=== PATIENT | female | born 1970 | race Two or more races ===

== ENCOUNTER 2017-05-13 06:08 | Emergency (ER) | payer OTHER ==
[~2017-05-13] VITALS: Ht 152.4 cm; Wt 108.9 kg
[2017-05-13] MEDS ORDERED: LEVSOD150 PO (06:27)
[2017-05-13 07:36] LABS: BASOPHILS ABSOLUTE AUTO 0.05 K/mm3 (0.00-0.23); BASOPHILS PERCENT AUTO 1 % (0-2); EOSINOPHILS ABSOLUTE AUTO 0.24 K/mm3 (0.00-0.68); EOSINOPHILS PERCENT AUTO 3 % (0-6); Hematocrit 37.6 % (33.0-51.0); Hemoglobin 11.4 g/dL (11.5-16.0); IMMATURE GRAN ABSOLUTE AUTO 0.02 K/mm3 (0.00-0.10); IMMATURE GRAN PERCENT AUTO 0 % (0-1); LYMPHOCYTES ABSOLUTE AUTO 1.94 K/mm3 (0.84-5.20); LYMPHOCYTES PERCENT AUTO 23 % (21-46); MONOCYTES ABSOLUTE AUTO 0.72 K/mm3 (0.16-1.47); MONOCYTES PERCENT AUTO 8 % (4-13); Mean Corpuscular HGB 22.2 pg (26.0-34.0); Mean Corpuscular HGB Conc 30.3 g/dL (31.5-36.5); Mean Corpuscular Volume 73 fL (80-100); Mean Platelet Volume 9.3 fL (9.1-12.4); NEUTROPHILS ABSOLUTE AUTO 5.62 K/mm3 (1.96-9.15); NEUTROPHILS PERCENT AUTO 65 % (41-73); Platelet Count 398 K/mm3 (150-400); RDW Coefficient Variation 16.1 % (11.7-14.2); RDW Standard Deviation 43.3 fL (35.1-46.3); Red Blood Cell Count 5.14 M/mm3 (3.80-5.20); White Blood Cell Count 8.59 K/mm3 (4.00-11.30)
[2017-05-13 08:00] LABS: Alanine Aminotransfer (ALT/SGP 25 U/L (12-78); Albumin, Blood 3.7 g/dL (3.4-5.0); Albumin/Globulin Ratio 0.9 (0.8-1.8); Alk Phos 55 U/L (50-136); Anion Gap 8 mmol/L (6-16); Aspartate Aminotrans (AST/SGOT 16 U/L (12-37); Bilirubin, Total 0.3 mg/dL (0.1-1.0); Blood Urea Nitrogen 13 mg/dL (8-24); Bun/Creatinine Ratio 22.7 (12.0-20.0); CO2, Blood 26 mmol/L (21-32); Calcium, Blood 8.4 mg/dL (8.5-10.1); Chloride, Blood 106 mmol/L (98-108); Creatinine, Blood 0.57 mg/dL (0.40-1.00); Globulin, Blood 4.2 g/dL (2.2-4.0); Glomerular Filtration Rate >60 (60-); Glucose, Blood 121 mg/dL (70-99); Potassium, Blood 3.5 mmol/L (3.5-5.5); Sodium, Blood 140 mmol/L (136-145); Total Protein, Blood 7.9 g/dL (6.4-8.2)
[2017-05-13] MEDS ORDERED: PROM25 PO (10:33)
== END 2017-05-13 10:59 | disposition home or self-care (01) ==
LOC: ER 06:08
PROVIDERS: Emergency Medicine
DX: K59.00 Constipation, unspecified (principal); Z90.49 Acquired absence of other specified parts of digestive tract
CPT/HCPCS: 36415; 74022; 74176; 80053; 81000; 83690; 84703; 85025; 96361; 96374; 96375; 99284; J2405; J3010; J3490; J7030

== ENCOUNTER → 2018-08-21 | Outpatient (CLI) | payer OTHER ==
[~2018-08-21] MED LIST: LEVSOD150 PO; PROM25 PO
[2018-08-23 15:06] LABS: HPV 16 Negative (Negative); HPV 18 Negative (Negative); HPV OTHER HR TYPES Negative (Negative)
== END | disposition home or self-care (01) ==
LOC: LAB SHORT 18:41 → LAB 18:41
PROVIDERS: Nurse Practitioner Women's Health
DX: Z12.4 Encounter for screening for malignant neoplasm of cervix (principal)
CPT/HCPCS: 87624; G0123

== ENCOUNTER 2020-02-29 20:25 | Emergency (ER) | payer OTHER ==
[~2020-02-29] VITALS: Ht 154.9 cm; Wt 106.6 kg
[2020-02-29] MEDS ORDERED: MEDR10 PO (20:40)
[2020-02-29 20:49] LABS: Source, Urine Clean Catch
[2020-02-29 20:51] LABS: Bilirubin, Urine Neg (Neg); Blood, Urine 5+ (Neg); Glucose Qualitative, Urine Neg (Neg); Ketones, Urine Neg (Neg); Leukocyte Esterase, Urine 3+ (Neg); Nitrite, Urine Neg (Neg); Protein, Urine 2+ (Neg); Specific Gravity, Urine 1.015 (1.003-1.022); Urobilinogen, Urine NORM (Normal)
[2020-02-29 20:55] LABS: Appearance, Urine Cloudy (Clear); Color, Urine Red (P-Yellow)
[2020-02-29 21:01] LABS: Red Blood Cells, Urine TNTC /hpf (0-2)
[2020-02-29 21:02] LABS: BASOPHILS ABSOLUTE AUTO 0.09 K/mm3 (0.00-0.23); BASOPHILS PERCENT AUTO 1 % (0-2); EOSINOPHILS ABSOLUTE AUTO 0.13 K/mm3 (0.00-0.68); EOSINOPHILS PERCENT AUTO 1 % (0-6); Hematocrit 30.9 % (33.0-51.0); Hemoglobin 10.1 g/dL (11.5-16.0); IMMATURE GRAN ABSOLUTE AUTO 0.04 K/mm3 (0.00-0.10); IMMATURE GRAN PERCENT AUTO 0 % (0-1); LYMPHOCYTES ABSOLUTE AUTO 3.46 K/mm3 (0.84-5.20); LYMPHOCYTES PERCENT AUTO 24 % (21-46); MONOCYTES ABSOLUTE AUTO 0.95 K/mm3 (0.16-1.47); MONOCYTES PERCENT AUTO 7 % (4-13); Mean Corpuscular HGB 29.5 pg (26.0-34.0); Mean Corpuscular HGB Conc 32.7 g/dL (31.5-36.5); Mean Corpuscular Volume 90 fL (80-100); Mean Platelet Volume 10.3 fL (9.1-12.4); NEUTROPHILS ABSOLUTE AUTO 9.55 K/mm3 (1.96-9.15); NEUTROPHILS PERCENT AUTO 67 % (41-73); Platelet Count 312 K/mm3 (150-400); RDW Coefficient Variation 13.7 % (11.7-14.2); RDW Standard Deviation 44.6 fL (35.1-46.3); Red Blood Cell Count 3.42 M/mm3 (3.80-5.20); White Blood Cell Count 14.22 K/mm3 (4.00-11.30)
[2020-02-29 21:03] LABS: Bacteria Mod /hpf; Squamous Epithelial Cells Rare /hpf (Few)
[2020-02-29 21:20] LABS: Alanine Aminotransfer (ALT/SGP 30 U/L (12-78); Albumin, Blood 3.6 g/dL (3.4-5.0); Alk Phos 46 U/L (50-136); Anion Gap 6 mmol/L (6-16); Aspartate Aminotrans (AST/SGOT 21 U/L (12-37); Bilirubin, Total 0.1 mg/dL (0.1-1.0); Blood Urea Nitrogen 18 mg/dL (8-24); Bun/Creatinine Ratio 29.9 (12.0-20.0); CO2, Blood 26 mmol/L (21-32); Calcium, Blood 8.9 mg/dL (8.5-10.1); Chloride, Blood 111 mmol/L (98-108); Globulin, Blood 3.5 g/dL (2.2-4.0); Glomerular Filtration Rate >60 (60-); Glucose, Blood 123 mg/dL (70-99); Potassium, Blood 3.9 mmol/L (3.5-5.5); Sodium, Blood 143 mmol/L (136-145); Total Protein, Blood 7.1 g/dL (6.4-8.2)
== END 2020-02-29 22:45 | disposition home or self-care (01) ==
LOC: ER 20:25
PROVIDERS: Emergency Medicine
DX: N93.9 Abnormal uterine and vaginal bleeding, unspecified (principal); E03.9 Hypothyroidism, unspecified; Z79.3 Long term (current) use of hormonal contraceptives; Z79.899 Other long term (current) drug therapy
CPT/HCPCS: 36415; 76830; 76856; 80053; 81001; 85025; 86850; 86900; 86901; 87077; 87086; 87186; 99284-25

== ENCOUNTER 2020-07-04 01:04 | Inpatient (IN) | payer OTHER ==
[~2020-07-04] VITALS: Ht 154.9 cm; Wt 105.5 kg
[~2020-07-04 01:04] MED LIST changes: +MEDR10 PO
[2020-07-04 02:08] LABS: BASOPHILS ABSOLUTE AUTO 0.02 K/mm3 (0.00-0.23); BASOPHILS PERCENT AUTO 0 % (0-2); EOSINOPHILS PERCENT AUTO 0 % (0-6); Hematocrit 44.5 % (33.0-51.0); Hemoglobin 14.3 g/dL (11.5-16.0); IMMATURE GRAN ABSOLUTE AUTO 0.13 K/mm3 (0.00-0.10); IMMATURE GRAN PERCENT AUTO 1 % (0-1); LYMPHOCYTES ABSOLUTE AUTO 1.25 K/mm3 (0.84-5.20); LYMPHOCYTES PERCENT AUTO 10 % (21-46); MONOCYTES PERCENT AUTO 6 % (4-13); Mean Corpuscular HGB Conc 32.1 g/dL (31.5-36.5); Mean Corpuscular Volume 75 fL (80-100); Mean Platelet Volume 10.1 fL (9.1-12.4); NEUTROPHILS ABSOLUTE AUTO 10.11 K/mm3 (1.96-9.15); NEUTROPHILS PERCENT AUTO 83 % (41-73); Platelet Count 333 K/mm3 (150-400); RDW Coefficient Variation 19.7 % (11.7-14.2); RDW Standard Deviation 50.7 fL (35.1-46.3); Red Blood Cell Count 5.97 M/mm3 (3.80-5.20); White Blood Cell Count 12.21 K/mm3 (4.00-11.30)
[2020-07-04 02:27] LABS: D-Dimer, Quantitative 0.3 mg/L FEU (0.00-0.52); International Normalized Ratio 0.95; Prothrombin Time Results 10.2 Sec (9.7-11.5)
[2020-07-04 02:29] LABS: Alanine Aminotransfer (ALT/SGP 28 U/L (12-78); Albumin, Blood 2.9 g/dL (3.4-5.0); Albumin/Globulin Ratio 0.6 (0.8-1.8); Alk Phos 62 U/L (50-136); Anion Gap 8 mmol/L (6-16); Aspartate Aminotrans (AST/SGOT 18 U/L (12-37); Bilirubin, Total 0.3 mg/dL (0.1-1.0); Blood Urea Nitrogen 13 mg/dL (8-24); Bun/Creatinine Ratio 28.4 (12.0-20.0); CO2, Blood 25 mmol/L (21-32); Calcium, Blood 8.6 mg/dL (8.5-10.1); Chloride, Blood 105 mmol/L (98-108); Creatinine, Blood 0.46 mg/dL (0.40-1.00); Globulin, Blood 4.7 g/dL (2.2-4.0); Glomerular Filtration Rate >60 (60-); Glucose, Blood 236 mg/dL (70-99); Potassium, Blood 3.5 mmol/L (3.5-5.5); Sodium, Blood 138 mmol/L (136-145); Total Protein, Blood 7.6 g/dL (6.4-8.2); Troponin I <0.015 ng/mL (0.000-0.040)
[2020-07-04 03:59] LABS: Influenza A, PCR NEGATIVE (NEGATIVE); Influenza B, PCR NEGATIVE (NEGATIVE); Resp Syncytial Virus, PCR NEGATIVE (NEGATIVE)
[2020-07-04 04:09] LABS: SARS-Cov-2 (COVID-19) PCR, MMC POSITIVE (NEGATIVE)
--- NOTE | 2020-07-04 07:11 | NUR ---
SHIFT SUMMARY PT ARRIVED TO THE UNIT AROUND 0510 ON 4 LPM VIA NC WITH O2 SATS >94%. PT ABLE TO STAND AND TRANSFER TO BED WITH MILD DYSPNEA. PT WAS ALERT, ORIENTED AND COOPERATIVE WITH CARE. BP WAS HYPERTENSIVE. HR 90'S. ADMISSION PROCESS COMPLETE. PT UP IN BED AND STATED SOB WAS GETTING BETTER.
[2020-07-04 14:03] LABS: BASOPHILS ABSOLUTE AUTO 0.01 K/mm3 (0.00-0.23); BASOPHILS PERCENT AUTO 0 % (0-2); EOSINOPHILS PERCENT AUTO 0 % (0-6); Hemoglobin 13.9 g/dL (11.5-16.0); IMMATURE GRAN ABSOLUTE AUTO 0.14 K/mm3 (0.00-0.10); IMMATURE GRAN PERCENT AUTO 1 % (0-1); LYMPHOCYTES ABSOLUTE AUTO 0.72 K/mm3 (0.84-5.20); LYMPHOCYTES PERCENT AUTO 7 % (21-46); MONOCYTES PERCENT AUTO 5 % (4-13); Mean Corpuscular HGB 23.7 pg (26.0-34.0); Mean Corpuscular HGB Conc 31.6 g/dL (31.5-36.5); Mean Corpuscular Volume 75 fL (80-100); Mean Platelet Volume 9.7 fL (9.1-12.4); NEUTROPHILS ABSOLUTE AUTO 9.03 K/mm3 (1.96-9.15); NEUTROPHILS PERCENT AUTO 87 % (41-73); Platelet Count 317 K/mm3 (150-400); RDW Standard Deviation 51.8 fL (35.1-46.3); Red Blood Cell Count 5.87 M/mm3 (3.80-5.20)
[2020-07-04 14:27] LABS: Alanine Aminotransfer (ALT/SGP 29 U/L (12-78); Albumin, Blood 2.8 g/dL (3.4-5.0); Albumin/Globulin Ratio 0.6 (0.8-1.8); Alk Phos 64 U/L (50-136); Anion Gap 8 mmol/L (6-16); Aspartate Aminotrans (AST/SGOT 18 U/L (12-37); Bilirubin, Total 0.2 mg/dL (0.1-1.0); Blood Urea Nitrogen 12 mg/dL (8-24); Bun/Creatinine Ratio 27.3 (12.0-20.0); CO2, Blood 24 mmol/L (21-32); Calcium, Blood 8.6 mg/dL (8.5-10.1); Chloride, Blood 106 mmol/L (98-108); Creatinine, Blood 0.44 mg/dL (0.40-1.00); Globulin, Blood 4.5 g/dL (2.2-4.0); Glomerular Filtration Rate >60 (60-); Glucose, Blood 308 mg/dL (70-99); Sodium, Blood 138 mmol/L (136-145); Total Protein, Blood 7.3 g/dL (6.4-8.2)
--- NOTE | 2020-07-04 17:00 | NUR ---
SHIFT SUMMARY NO ACUTE EVENTS THIS SHIFT. PATIENT ALERT AND ORIENTED, ABLE TO AMBULATE IN ROOM WITH STANDBY ASSIST FOR O2 TUBING MANAGEMENT. PATIENT O2 SATS MAINTAINED IN 90S THIS SHIFT WITH 3 L VIA NASAL CANNULA. PATIENT HYPERTENSIVE AT TIMES, CLONIDINE AND HYDRALAZINE GIVEN PRN PER EMAR. PATIENT DENIED PAIN THIS SHIFT, COMPLAINED OF HEADACHE BUT DECLINED TYLENOL AT THIS TIME.
[2020-07-05 04:04] LABS: BASOPHILS ABSOLUTE AUTO 0.02 K/mm3 (0.00-0.23); BASOPHILS PERCENT AUTO 0 % (0-2); EOSINOPHILS ABSOLUTE AUTO 0.01 K/mm3 (0.00-0.68); EOSINOPHILS PERCENT AUTO 0 % (0-6); Hematocrit 44.4 % (33.0-51.0); IMMATURE GRAN PERCENT AUTO 1 % (0-1); LYMPHOCYTES ABSOLUTE AUTO 1.65 K/mm3 (0.84-5.20); LYMPHOCYTES PERCENT AUTO 19 % (21-46); MONOCYTES ABSOLUTE AUTO 0.58 K/mm3 (0.16-1.47); MONOCYTES PERCENT AUTO 7 % (4-13); Mean Corpuscular HGB 23.6 pg (26.0-34.0); Mean Corpuscular HGB Conc 31.5 g/dL (31.5-36.5); Mean Corpuscular Volume 75 fL (80-100); Mean Platelet Volume 9.7 fL (9.1-12.4); NEUTROPHILS ABSOLUTE AUTO 6.51 K/mm3 (1.96-9.15); NEUTROPHILS PERCENT AUTO 74 % (41-73); Platelet Count 311 K/mm3 (150-400); RDW Coefficient Variation 20.1 % (11.7-14.2); Red Blood Cell Count 5.94 M/mm3 (3.80-5.20); White Blood Cell Count 8.87 K/mm3 (4.00-11.30)
[2020-07-05 05:33] LABS: Alanine Aminotransfer (ALT/SGP 27 U/L (12-78); Albumin, Blood 2.7 g/dL (3.4-5.0); Albumin/Globulin Ratio 0.6 (0.8-1.8); Alk Phos 56 U/L (50-136); Anion Gap 8 mmol/L (6-16); Aspartate Aminotrans (AST/SGOT 23 U/L (12-37); Bilirubin, Total 0.3 mg/dL (0.1-1.0); Blood Urea Nitrogen 14 mg/dL (8-24); Bun/Creatinine Ratio 31.5 (12.0-20.0); CO2, Blood 26 mmol/L (21-32); Calcium, Blood 8.5 mg/dL (8.5-10.1); Chloride, Blood 106 mmol/L (98-108); Creatinine, Blood 0.45 mg/dL (0.40-1.00); Globulin, Blood 4.3 g/dL (2.2-4.0); Glomerular Filtration Rate >60 (60-); Glucose, Blood 162 mg/dL (70-99); Magnesium, Blood 2.3 mg/dL (1.6-2.4); Phosphorus, Blood 2.9 mg/dL (2.5-4.9); Potassium, Blood 3.6 mmol/L (3.5-5.5); Sodium, Blood 140 mmol/L (136-145); Troponin I <0.015 ng/mL (0.000-0.040)
--- NOTE | 2020-07-05 05:44 | NUR ---
SHIFT SUMMARY PT A&OX4. PT HAD ONE EPISODE OF ANXIETY THIS SHIFT, CALL PLACED TO MD HERNANDEZ. MD HERNANDEZ W/ ORDERS FOR PO ATIVAN, WHICH PROVIDED RELIEF. SP02>90% ON 3-5L NC. PT DOES GET SOB W/ EXERTION. PT HAS OCCASIONAL COUGH PRODUCING CLEAR STREAKED SPUTUM. TELEMETRY READ SR, HR 80'S. PT HAD ELEVATED BP THIS SHIFT, MEDICATED W/ HYDRALAZINE PER EMAR X1. PT UP TO [facility] [place]/ SBA TO VOID AND HAVE ONE EPISODE OF LIQUID DIARRHEA. PT SLEPT OFF AND ON T/O NIGHT. USES CALL LIGHT APPROPRIATELY. CALL LIGHT IN REACH. WILL GIVE REPORT TO ONCOMING NURSE.
--- NOTE | 2020-07-05 18:01 | NUR ---
SHIFT SUMMARY: NO ACUTE CHANGES T/OUT SHIFT. PT CONTINUES A&OX4, RESPIRATIONS EVEN AND UNLABORED, MAINTAINING O2 SATS >90% ON O2 AT 5 L/MIN VIA HIFLO HUMIDIFIED AIR, MILD DYSPNEA W/EXERTION, SINUS RHTYHM ON MONITOR. PT INDEPENDENT IN ROOM, HAS STARTED WALKING TO RESTROOM W/SBA WITH MINIMAL DESATURATION. PT W/OCCASIONAL COUGH PRODUCTIVE OF CLEAR, STREAKED SPUTUM. PT PROVIDED WITH AND EDUCATED ABOUT INCENTIVE SPIROMETER BY RT. PT NOTED TO BE USING SPIROMETER MULTIPLE TIMES T/OUT SHIFT. PT SHOWERED TODAY W/MINIMAL ASSISTANCE. AT THIS TIME, PT IS RESTING QUIETLY IN ROOM. WILL CONTINUE TO MONITOR AND TREAT ACCORDINGLY UNTIL CHANGE OF SHIFT.
[2020-07-06 04:38] LABS: BASOPHILS ABSOLUTE AUTO 0.03 K/mm3 (0.00-0.23); BASOPHILS PERCENT AUTO 0 % (0-2); EOSINOPHILS ABSOLUTE AUTO 0.02 K/mm3 (0.00-0.68); EOSINOPHILS PERCENT AUTO 0 % (0-6); Hematocrit 45.5 % (33.0-51.0); Hemoglobin 14.3 g/dL (11.5-16.0); IMMATURE GRAN ABSOLUTE AUTO 0.15 K/mm3 (0.00-0.10); IMMATURE GRAN PERCENT AUTO 2 % (0-1); LYMPHOCYTES ABSOLUTE AUTO 1.37 K/mm3 (0.84-5.20); LYMPHOCYTES PERCENT AUTO 18 % (21-46); MONOCYTES ABSOLUTE AUTO 0.66 K/mm3 (0.16-1.47); MONOCYTES PERCENT AUTO 9 % (4-13); Mean Corpuscular HGB 23.4 pg (26.0-34.0); Mean Corpuscular HGB Conc 31.4 g/dL (31.5-36.5); Mean Corpuscular Volume 75 fL (80-100); Mean Platelet Volume 9.7 fL (9.1-12.4); NEUTROPHILS ABSOLUTE AUTO 5.55 K/mm3 (1.96-9.15); NEUTROPHILS PERCENT AUTO 71 % (41-73); Platelet Count 385 K/mm3 (150-400); RDW Coefficient Variation 20.2 % (11.7-14.2); RDW Standard Deviation 50.7 fL (35.1-46.3); White Blood Cell Count 7.78 K/mm3 (4.00-11.30)
[2020-07-06 04:58] LABS: Alanine Aminotransfer (ALT/SGP 28 U/L (12-78); Albumin, Blood 2.8 g/dL (3.4-5.0); Albumin/Globulin Ratio 0.6 (0.8-1.8); Alk Phos 59 U/L (50-136); Anion Gap 6 mmol/L (6-16); Aspartate Aminotrans (AST/SGOT 20 U/L (12-37); Bilirubin, Total 0.3 mg/dL (0.1-1.0); Blood Urea Nitrogen 12 mg/dL (8-24); Bun/Creatinine Ratio 23.2 (12.0-20.0); CO2, Blood 25 mmol/L (21-32); Chloride, Blood 107 mmol/L (98-108); Creatinine, Blood 0.52 mg/dL (0.40-1.00); Globulin, Blood 4.4 g/dL (2.2-4.0); Glomerular Filtration Rate >60 (60-); Glucose, Blood 137 mg/dL (70-99); Magnesium, Blood 2.1 mg/dL (1.6-2.4); Phosphorus, Blood 3.5 mg/dL (2.5-4.9); Potassium, Blood 3.6 mmol/L (3.5-5.5); Sodium, Blood 138 mmol/L (136-145); Total Protein, Blood 7.2 g/dL (6.4-8.2)
--- NOTE | 2020-07-06 05:44 | NUR ---
SHIFT SUMMARY NO ACUTE CHANGES THIS SHIFT. PT A&OX4. SP02>90% ON 5-6L HI GISELA NC. SLIGHT SOB W/ EXERTION. PT DOES HAVE OCCASIONAL COUGH PRODUCING CLEAR, PINK STREAKED SPUTUM. PT IS MEDICAL STATUS, NO TELE. BP ELEVATED THIS SHIFT, MEDICATED W/ HYDRALAZINE TWICE THIS SHIFT. PT REPORTS ANXIETY AT BEGINNING OF SHIFT, MEDICATED W/ ATIVAN PER EMAR. PT REPORTS SLEEPING WELL THIS SHIFT. NOW RESTING IN ROOM. CALL LIGHTIN REACH. WILL GIVE REPORT TO ONCOMING NURSE.
--- NOTE | 2020-07-06 14:57 | NUR ---
ALERT. ORIENTED. ON 5 LPM HIGH FLOW OXYGEN. PLEASANT. COOPERATIVE. ABLE TO MAKE NEEDS KNOWN. STANDBY ASSIST WHEN GOING TO BATHROOM DUE TO OXYGEN LINE, IV LINE AND PUMP. DESATS TO HIGH 80'S AFTER EXERTION, BUT RECOVERS QUICKLY. HAVE NOT WEANED DOWN OXYGEN SATS 90-93%. SPEAKS IN COMPLETE SENTENCES. UNLABORED RESPIRATIONS. NO ACUTE CHANGES. [facility]
[2020-07-07 04:12] LABS: BASOPHILS ABSOLUTE AUTO 0.03 K/mm3 (0.00-0.23); BASOPHILS PERCENT AUTO 0 % (0-2); EOSINOPHILS ABSOLUTE AUTO 0.05 K/mm3 (0.00-0.68); EOSINOPHILS PERCENT AUTO 1 % (0-6); Hematocrit 46.1 % (33.0-51.0); Hemoglobin 14.6 g/dL (11.5-16.0); IMMATURE GRAN ABSOLUTE AUTO 0.36 K/mm3 (0.00-0.10); IMMATURE GRAN PERCENT AUTO 4 % (0-1); LYMPHOCYTES ABSOLUTE AUTO 1.41 K/mm3 (0.84-5.20); LYMPHOCYTES PERCENT AUTO 17 % (21-46); MONOCYTES ABSOLUTE AUTO 0.67 K/mm3 (0.16-1.47); MONOCYTES PERCENT AUTO 8 % (4-13); Mean Corpuscular HGB 23.6 pg (26.0-34.0); Mean Corpuscular HGB Conc 31.7 g/dL (31.5-36.5); Mean Corpuscular Volume 75 fL (80-100); Mean Platelet Volume 9.4 fL (9.1-12.4); NEUTROPHILS ABSOLUTE AUTO 5.86 K/mm3 (1.96-9.15); NEUTROPHILS PERCENT AUTO 70 % (41-73); Platelet Count 403 K/mm3 (150-400); RDW Coefficient Variation 20.3 % (11.7-14.2); RDW Standard Deviation 51.6 fL (35.1-46.3); Red Blood Cell Count 6.19 M/mm3 (3.80-5.20); White Blood Cell Count 8.38 K/mm3 (4.00-11.30)
--- NOTE | 2020-07-07 04:22 | NUR ---
53 year old Female with covid 19 pneumonia & hypoxia continues to desat to as low as 82% on 6 l high flow with activity, takes about 5 mins to rebound. Best sat 91% on 6 l high flow. PT has wireless oximetry & she is up & down to bathroom with SBA. Unable to lay prone & sleeps mostly in bedside recliner. Pt on Tele monitor SR 80's to 90's. Medicated with oral & IV med to tx SBP greater. THAN 90%. Bowel movement during night voids multiple times. BG elevated greater than 200 recieved insulin at HS. Brother is also hospitalized with covid 19. Attempt to wean off oxygen as tolerated.
[2020-07-07 04:34] LABS: Anion Gap 7 mmol/L (6-16); Blood Urea Nitrogen 14 mg/dL (8-24); Bun/Creatinine Ratio 28.7 (12.0-20.0); CO2, Blood 26 mmol/L (21-32); Calcium, Blood 8.5 mg/dL (8.5-10.1); Chloride, Blood 107 mmol/L (98-108); Creatinine, Blood 0.49 mg/dL (0.40-1.00); Glomerular Filtration Rate >60 (60-); Glucose, Blood 114 mg/dL (70-99); Magnesium, Blood 2.1 mg/dL (1.6-2.4); Phosphorus, Blood 3.8 mg/dL (2.5-4.9); Potassium, Blood 3.9 mmol/L (3.5-5.5); Sodium, Blood 140 mmol/L (136-145)
--- NOTE | 2020-07-07 17:52 | NUR ---
SHIFT SUMMARY PT ALERT AND ORIENTED X 4. PT ABLE TO AMBULATE SBA TO BATHROOM NEEDED. HR STABLE. BP STABLE. OXYGEN SATURATION MAINTAINED ABOVE 90% ON 6 L OF OXYGEN VIA HIGH FLOW NC. WILL CONTINUE TO MONITOR UNTIL REPORT GIVEN TO SANITATION LABORER, RN.
[2020-07-08 04:08] LABS: BASOPHILS ABSOLUTE AUTO 0.04 K/mm3 (0.00-0.23); BASOPHILS PERCENT AUTO 0 % (0-2); EOSINOPHILS ABSOLUTE AUTO 0.08 K/mm3 (0.00-0.68); EOSINOPHILS PERCENT AUTO 1 % (0-6); Hematocrit 46.3 % (33.0-51.0); Hemoglobin 14.8 g/dL (11.5-16.0); IMMATURE GRAN ABSOLUTE AUTO 0.52 K/mm3 (0.00-0.10); IMMATURE GRAN PERCENT AUTO 5 % (0-1); LYMPHOCYTES ABSOLUTE AUTO 1.94 K/mm3 (0.84-5.20); LYMPHOCYTES PERCENT AUTO 20 % (21-46); MONOCYTES ABSOLUTE AUTO 0.84 K/mm3 (0.16-1.47); MONOCYTES PERCENT AUTO 9 % (4-13); Mean Corpuscular HGB 23.6 pg (26.0-34.0); Mean Corpuscular Volume 74 fL (80-100); Mean Platelet Volume 9.3 fL (9.1-12.4); NEUTROPHILS ABSOLUTE AUTO 6.37 K/mm3 (1.96-9.15); NEUTROPHILS PERCENT AUTO 65 % (41-73); Platelet Count 457 K/mm3 (150-400); RDW Coefficient Variation 20.3 % (11.7-14.2); RDW Standard Deviation 50.8 fL (35.1-46.3); Red Blood Cell Count 6.27 M/mm3 (3.80-5.20); White Blood Cell Count 9.79 K/mm3 (4.00-11.30)
[2020-07-08 04:26] LABS: Anion Gap 7 mmol/L (6-16); Blood Urea Nitrogen 15 mg/dL (8-24); Bun/Creatinine Ratio 30.7 (12.0-20.0); CO2, Blood 24 mmol/L (21-32); Calcium, Blood 8.8 mg/dL (8.5-10.1); Chloride, Blood 108 mmol/L (98-108); Creatinine, Blood 0.49 mg/dL (0.40-1.00); Glomerular Filtration Rate >60 (60-); Glucose, Blood 112 mg/dL (70-99); Potassium, Blood 3.8 mmol/L (3.5-5.5); Sodium, Blood 139 mmol/L (136-145)
[2020-07-08 04:30] LABS: BASOPHILS PERCENT MAN 0 % (0-2); EOSINOPHILS PERCENT MAN 0 % (0-6); LYMPHOCYTES ABSOLUTE MAN 1.17 K/mm3 (0.84-5.20); LYMPHOCYTES PERCENT MAN 12 % (21-46); METAMYELOCYTE ABSOLUTE MAN 0.29 K/mm3 (0.00-0.00); METAMYELOCYTE PERCENT MAN 3 % (0-0); MONOCYTES ABSOLUTE MAN 0.48 K/mm3 (0.16-1.47); MONOCYTES PERCENT MAN 5 % (4-13); NEUTROPHILS ABSOLUTE MAN 7.83 K/mm3 (1.96-9.15); SEG NEUTROPHILS PERCENT MAN 80 % (41-73); TOTAL CELLS COUNTED 100
--- NOTE | 2020-07-08 04:33 | NUR ---
SHIFT SUMMARY PATIENT HAD NO ACUTE CHANGES OBSERVED. AXOX 4 AND INDEPENDENT IN THE ROOM. ON 6L O2 VIA HIGH FLOW MAINTAINING ABOVE 90%. REPORTED ANXIETY X ONE AND PO ATIVAN 0.5 MG GIVEN PER EMAR. CBG 190. PIV REMAINS INTACT. ELECTRICIAN DECK REPORTS SR 91. VSS/AFEBRILE. DENIES PAIN AND N/V. ABLE TO MAKE NEEDS KNOWN. CALL LIGHT IN REACH. BED IN LOWEST POSITION. WILL CONTINUE TO MONITOR UNTIL DAY SHIFT NURSE ASSUMES CARE.
--- NOTE | 2020-07-08 18:13 | NUR ---
PT SUMMARY; PT TITRATED DOWN TO 4L OF O2 VIA HIFLO SATS 90-92% THE REST OF THE VITALS STABLE. PT WAS ABLE TO GET A SHOWER TODAYPT DESATS TO 84% BUT RECOVERS QUICK. LAST DOSE OF REMDESIVIR GIVEN TODAY. PT DENIES ANY CHEST PAIN/PRESSURE, /SOB WITH EXERTION. PT AMBULATING INDEPENDENTLY IN THE ROOM ALERT AND ORIENTED. PT ABLE TO MAKE NEEDS KNOWN, CALLS APPROPRIATELY, WILL MONITOR UNTIL END OF SHIFT
[2020-07-09 04:18] LABS: Hematocrit 46.6 % (33.0-51.0); Hemoglobin 14.8 g/dL (11.5-16.0); Mean Corpuscular HGB 23.3 pg (26.0-34.0); Mean Corpuscular HGB Conc 31.8 g/dL (31.5-36.5); Mean Corpuscular Volume 73 fL (80-100); Mean Platelet Volume 9.5 fL (9.1-12.4); Platelet Count 498 K/mm3 (150-400); RDW Coefficient Variation 20.2 % (11.7-14.2); RDW Standard Deviation 50.7 fL (35.1-46.3); Red Blood Cell Count 6.36 M/mm3 (3.80-5.20); White Blood Cell Count 10.83 K/mm3 (4.00-11.30)
[2020-07-09 04:36] LABS: Anion Gap 7 mmol/L (6-16); Blood Urea Nitrogen 15 mg/dL (8-24); Bun/Creatinine Ratio 30.9 (12.0-20.0); CO2, Blood 25 mmol/L (21-32); Calcium, Blood 8.5 mg/dL (8.5-10.1); Chloride, Blood 106 mmol/L (98-108); Creatinine, Blood 0.49 mg/dL (0.40-1.00); Glomerular Filtration Rate >60 (60-); Glucose, Blood 108 mg/dL (70-99); Potassium, Blood 3.8 mmol/L (3.5-5.5); Sodium, Blood 138 mmol/L (136-145)
[2020-07-09 04:45] LABS: BASOPHILS PERCENT MAN 0 % (0-2); EOSINOPHILS PERCENT MAN 0 % (0-6); LYMPHOCYTES ABSOLUTE MAN 2.16 K/mm3 (0.84-5.20); LYMPHOCYTES PERCENT MAN 20 % (21-46); METAMYELOCYTE PERCENT MAN 1 % (0-0); MONOCYTES ABSOLUTE MAN 0.75 K/mm3 (0.16-1.47); MONOCYTES PERCENT MAN 7 % (4-13); MYELOCYTE PERCENT MAN 1 % (0-0); NEUTROPHILS ABSOLUTE MAN 7.68 K/mm3 (1.96-9.15); SEG NEUTROPHILS PERCENT MAN 71 % (41-73); TOTAL CELLS COUNTED 100
--- NOTE | 2020-07-09 05:19 | NUR ---
SHIFT SUMMARY PT MEDICAL W/ TELE STATUS. A&O X4. VSS. MONITOR SHOWS NSR, HR 70's-100. PT TOLERATING AMBULATION TO BATHROOM W/ SOME SOB & QUICK RECOVERY W/ REST. SPO2 > 90% ON 4L NC.
[2020-07-09] MEDS ORDERED: Prinivil10 MG PO (12:37)
[2020-07-09] MEDS ORDERED: DEXA6 (12:40)
[2020-07-09] MEDS ORDERED: METF500 PO (12:41)
--- NOTE | 2020-07-09 16:48 | NUR ---
PT SITTING UP IN THE CHAIR, RonnellSErik STABLE. DOWN TO 1 LITER 02 VIA N/C, STATES SHE'S FEELING BETTER AND IS READY TO GO HOME, WENT OVER DISCHARGE INSTRUCTIONS WITH HER, SHE VERBALIZED UNDERSTANDING, NEW MEDICATIONS WERE CALLED IN. IV REMOVED INTACT. WAITING ON DAUGHTER TO PICK HER UP. CALL LIGHT IN REACH.
--- NOTE | 2020-07-09 17:01 | NUR ---
PT LEFT VIA WHEELCHAIR WITH ALL HER BELONGINGS WITH LEACH CELL OPERATOR IN ATTENDENCE.
== END 2020-07-09 16:59 | disposition home or self-care (01) | DRG 177 ==
LOC: ER 01:04 → PCU 04:55
PROVIDERS: Emergency Medicine; Family Medicine; Internal Medicine; ADMIT Internal Medicine
PROC: XW033E5 Introduction of Remdesivir Anti-infective into Peripheral Vein, Percutaneous Approach, New Technology Group 5 (ICD-10-PCS; principal; 2020-07-04)
PROC: XW033E5 Introduction of Remdesivir Anti-infective into Peripheral Vein, Percutaneous Approach, New Technology Group 5 (ICD-10-PCS; 2020-07-05)
PROC: XW033E5 Introduction of Remdesivir Anti-infective into Peripheral Vein, Percutaneous Approach, New Technology Group 5 (ICD-10-PCS; 2020-07-06)
PROC: XW033E5 Introduction of Remdesivir Anti-infective into Peripheral Vein, Percutaneous Approach, New Technology Group 5 (ICD-10-PCS; 2020-07-07)
PROC: XW033E5 Introduction of Remdesivir Anti-infective into Peripheral Vein, Percutaneous Approach, New Technology Group 5 (ICD-10-PCS; 2020-07-08)
DX: U07.1 COVID-19 (principal); J12.82 Pneumonia due to coronavirus disease 2019; J96.01 Acute respiratory failure with hypoxia; Z68.41 Body mass index [BMI] 40.0-44.9, adult; E66.2 Morbid (severe) obesity with alveolar hypoventilation; E03.9 Hypothyroidism, unspecified; E11.65 Type 2 diabetes mellitus with hyperglycemia; I10 Essential (primary) hypertension
CPT/HCPCS: 0241U; 36415; 71045; 71260; 80048; 80053; 82947; 83605; 83690; 83735; 83880; 84100; 84145; 84443; 84484; 85025; 85379; 85610; 93005; 93010; 94761; 94762; 96365; 96375; 99285-25; A9270; J0360; J0696; J1100; J1650; J3010; J7050; Q9967

== ENCOUNTER 2021-08-12 06:10 | Day surgery (SDC) | payer OTHER ==
[~2021-08-12] VITALS: Ht 152.4 cm; Wt 105.9 kg
[~2021-08-12 06:10] MED LIST changes: +DEXA6; +METF500 PO; +Prinivil10 MG PO
--- NOTE | 2021-08-12 08:35 | NUR ---
08/12/21 0835 Braeden Carrasco IUD REMOVED BY SURGEON AND DISPOSED OF PER .
--- NOTE | 2021-08-12 11:17 | NUR ---
ARRIVAL PT ARRIVED FROM PACU VIA GURNEY, TRANSFERED WITH SLIDE SHEET, TOLERATED WELL. PT [id number] ON ARRIVAL, ON ROOM AIR. DENIES PAIN CURRENTLY, DENIES SOB. GIVEN WATER AND JELLO. TOLERATING PO. NO NAUSEA. INEZ PAD CHANGED, SCANT DRAINAGE ON ARRIVAL. PT HAS ICE PACK IN PLACE FOR "BURNING" SENSATION FELT EARLIER. REPORTS IMPROVEMENT CURRENTLY. LAP SITES CDI.
[2021-08-12 13:26] LABS: BASOPHILS ABSOLUTE AUTO 0.06 K/mm3 (0.00-0.23); BASOPHILS PERCENT AUTO 0 % (0-2); EOSINOPHILS ABSOLUTE AUTO 0.01 K/mm3 (0.00-0.68); EOSINOPHILS PERCENT AUTO 0 % (0-6); Hematocrit 44.1 % (33.0-51.0); Hemoglobin 14.5 g/dL (11.5-16.0); IMMATURE GRAN ABSOLUTE AUTO 0.09 K/mm3 (0.00-0.10); IMMATURE GRAN PERCENT AUTO 1 % (0-1); LYMPHOCYTES ABSOLUTE AUTO 1.12 K/mm3 (0.84-5.20); LYMPHOCYTES PERCENT AUTO 7 % (21-46); MONOCYTES ABSOLUTE AUTO 0.31 K/mm3 (0.16-1.47); MONOCYTES PERCENT AUTO 2 % (4-13); Mean Corpuscular HGB 29.4 pg (26.0-34.0); Mean Corpuscular HGB Conc 32.9 g/dL (31.5-36.5); Mean Corpuscular Volume 90 fL (80-100); Mean Platelet Volume 10.6 fL (9.1-12.4); NEUTROPHILS ABSOLUTE AUTO 14.19 K/mm3 (1.96-9.15); NEUTROPHILS PERCENT AUTO 90 % (41-73); Platelet Count 271 K/mm3 (150-400); RDW Standard Deviation 42.6 fL (35.1-46.3); Red Blood Cell Count 4.93 M/mm3 (3.80-5.20); White Blood Cell Count 15.78 K/mm3 (4.00-11.30)
--- NOTE | 2021-08-12 16:06 | NUR ---
ASSUMMED PT CARE AT 1330. PT PLEASANT COOP DENIES BUT LITTLE PAIN AT THIS TIME. IS 2 SMALL INCISIONS LAP. SMALL DRIED BLEED NOTED AT EMBILICUS. NO CURRENT BLEEDING NOTED. BED IN LOW POSITION,C ALLLITE IN REACH, CALLS APORP
--- NOTE | 2021-08-12 16:54 | NUR ---
PT PLEASANT SINCE TRANSFER. PAIN 4-5. GAVE NORCO. WITH LITTLE HELP. 1 HR LATER BP INCREASED DID H/R. DISCUSSED WITH UTILITY ARBORIST. OKAYED GIVE TORADOL, SEE NOTE FROM PRIOR TORADOL GIVEN EARLY IN POST OP. THIS DOSE >6 HRS. WILL MONITOR. CALLED DR RIVERA TO UPDATE ABOUT BP AND H/R . CALL TO , PONCHO TO CALL BACK. PT STATES FEELS LIKE SHE'S OKAY TO GO HOME. WILL DISCUSS WITH . PT STATES PAIN NOW DOWN TO A 1. IS PLEASED. NO OTHER CONCENRS NOTED. VERY LITE BLEED AT EMBILICUS. DRY NOW. PT URINATING YELLOW URINE. BED IN LOW POSITION,C ALL LITE IN [facility], CALLS APPROP
[2021-08-12] MEDS ORDERED: IBUP800 PO (17:20)
[2021-08-12] MEDS ORDERED: HYDR1TAB94 PO (17:20)
== END 2021-08-12 19:17 | disposition home or self-care (01) ==
LOC: ORSCMMR 06:10 → ORD 07:30 → ORSCMMR 07:30 → SURS 11:15 → ORSCMMR 19:17
PROVIDERS: Obstetrics & Gynecology
PROC: 0UT9FZZ Resection of Uterus, Via Natural or Artificial Opening With Percutaneous Endoscopic Assistance (ICD-10-PCS; principal; 2021-08-12 07:30)
DX: N94.6 Dysmenorrhea, unspecified (principal); D25.9 Leiomyoma of uterus, unspecified; R10.2 Pelvic and perineal pain; N84.0 Polyp of corpus uteri; N72 Inflammatory disease of cervix uteri; I10 Essential (primary) hypertension; E78.5 Hyperlipidemia, unspecified; K76.0 Fatty (change of) liver, not elsewhere classified; E11.40 Type 2 diabetes mellitus with diabetic neuropathy, unspecified; E66.01 Morbid (severe) obesity due to excess calories; Z68.42 Body mass index [BMI] 45.0-49.9, adult; Z79.899 Other long term (current) drug therapy; Z86.16 Personal history of COVID-19
CPT/HCPCS: 36415; 82947; 85025; 88307; A9270; J0171; J0690; J1100; J1885; J2250; J2370; J2405; J2704; J3010; J7120

== ENCOUNTER → 2022-08-31 | Outpatient (CLI) | payer BC ==
[~2022-08-31] MED LIST changes: +AMLODIPINE BESYL5 MG PO; +Diovan160 MG PO; +HYDR1TAB94 PO; +IBUP800 PO; +METO50ER PO; +THYR60 PO
[2022-09-01 11:50] LABS: Follicle Stimulating Hormone 52.8 mIU/ml; Luteinizing Hormone 24.8 mIU/ml
== END | disposition home or self-care (01) ==
LOC: LAB SHORT 17:10
PROVIDERS: Registered Nurse Community Health
DX: N95.1 Menopausal and female climacteric states (principal); R32 Unspecified urinary incontinence
CPT/HCPCS: 83001; 83002; 83036

== ENCOUNTER → 2023-04-21 | Outpatient (CLI) | payer BC | LOC: LAB SHORT 16:15 → LAB 16:15 | DX: E03.9 Hypothyroidism, unspecified (principal) | CPT/HCPCS: 84443 ==

== ENCOUNTER 2024-05-03 12:13 | Emergency (ER) | payer OTHER, BC ==
[~2024-05-03] VITALS: Ht 154.9 cm; Wt 106.6 kg
[2024-05-03 13:00] VITALS: BP 165/88
[2024-05-03] MEDS ORDERED: Ketorolac Tromethamine 30mg Vial IM ONE (16:55)
== END 2024-05-03 17:30 | disposition home or self-care (01) ==
LOC: ER 12:13
DX: S76.312A Strain of muscle, fascia and tendon of the posterior muscle group at thigh level, left thigh, initial encounter (principal); E03.9 Hypothyroidism, unspecified; W01.0XXA Fall on same level from slipping, tripping and stumbling without subsequent striking against object, initial encounter; Z79.899 Other long term (current) drug therapy
CPT/HCPCS: 72170; 96372; 99283-25; J1885